=== PATIENT | female | born 1960 | race African-American/Black ===

== ENCOUNTER 2018-12-18 17:03 | Emergency (ER) | payer BC ==
[~2018-12-18] VITALS: Ht 175.3 cm; Wt 90.0 kg
[2018-12-18] MEDS ORDERED: KETOROLAC 60MG/2ML VIAL IM ONE (23:00)
[2018-12-19 00:55] VITALS: BP 141/83
== END 2018-12-19 00:56 | disposition home or self-care (01) ==
LOC: ER 17:03
DX: M25.532 Pain in left wrist (principal); M25.531 Pain in right wrist; M25.511 Pain in right shoulder; E03.9 Hypothyroidism, unspecified; M19.90 Unspecified osteoarthritis, unspecified site; W01.10XA Fall on same level from slipping, tripping and stumbling with subsequent striking against unspecified object, initial encounter; Y93.01 Activity, walking, marching and hiking; Y92.89 Other specified places as the place of occurrence of the external cause; Z90.710 Acquired absence of both cervix and uterus
CPT/HCPCS: 29125; 73030; 73110; 96372; 99283; J1885; A4565